=== PATIENT | female | born 1995 | race Caucasian/White ===

== ENCOUNTER 2024-10-10 10:15 | Outpatient (RCR) | payer BC, SELFPAY | END 2025-02-07 23:59 | disposition home or self-care (01) | PROVIDERS: Visit Provider Student in an Organized Health Care Education/Training Program | DX: S06.0X1D Concussion with loss of consciousness of 30 minutes or less, subsequent encounter (principal); Z51.89 Encounter for other specified aftercare | CPT/HCPCS: 97110; 97140; 97162 ==